=== PATIENT | female | born 1980 | race Caucasian/White ===

== ENCOUNTER 2017-12-02 07:00 | Observation (INO) | payer OTHER ==
[~2017-12-02] VITALS: Ht 165.1 cm; Wt 79.9 kg
[~2017-12-02 07:00] MED LIST: ALBUTEROL SULF8.5 GM IH; ENDOCET 5-3251 EACH PO; IRON325 MG PO; LABETALOL HCL200 MG PO; MOTRIN800 MG PO; Motrin PO; NATALCARE RX1 TABLET PO; NIFEDIPINE10 MG PO; PERCOCET 5/31 TABLET PO; Percocet 5/325,Endoc PO; ZITHROMAX250 MG PO
[2017-12-02 07:32] LABS: BASOPHIL (%) 0.6 % (0-1); EOSINOPHIL (%) 0.9 % (0-5); HEMOGLOBIN 12.3 G/DL (11.9-15.5); IMMATURE GRANULOCYTE (%) 0.3 % (0.0-0.7); LYMPHOCYTE (%) 28.6 % (15-42); MCHC 33.2 G/DL (30.0-36.0); MCV 87.3 FL (83-99); MONOCYTE (%) 11.7 % (3-12); MONOCYTE COUNT 0.4 K/uL (0-0.8); NEUTROPHIL (%) 57.9 % (45-76); NEUTROPHIL COUNT 1.9 K/uL (1.8-6.4); PLATELET COUNT 150 K/uL (156-360); RBC DIS.WIDTH-CV 12.6 % (11.8-14.6); RBC DIS.WIDTH-SD 39.9 % (39-53); RED BLOOD COUNT 4.24 M/uL (3.80-5.20); WHITE BLOOD COUNT 3.3 K/uL (4.1-10.2)
[2017-12-02 07:47] LABS: CHLORIDE 111 mEq/L (99-109); POTASSIUM 4.1 mEq/L (3.7-5.4); SODIUM 138 mEq/L (136-147)
[2017-12-02 07:48] LABS: GLUCOSE 91 mg/dL (70-99)
[2017-12-02 07:52] LABS: CREATININE 0.7 mg/dL (0.6-1.3); GFR ESTIMATE (CALCULATED) > 59 mL/min/
[2017-12-02 08:03] LABS: UREA NITROGEN (BUN) 16 mg/dL (9-23)
[2017-12-02 10:15] LABS: HDL CHOLESTEROL 51 MG/DL (Desirable>=50); LDL CHOLESTEROL 69 mg/dL (Desirable<100); NON-HDL CHOLESTEROL 87 mg/dL (Desirable<160); TOTAL CHOLESTEROL 138 mg/dL (Desirable<200); TRIGLYCERIDES 89 MG/DL (Normal: <150)
[2017-12-02 11:15] VITALS: BP 124/78
[2017-12-02 11:35] LABS: HEMOGLOBIN A1c (GLYCOHEMOGLOB) 5.4 % (Below 5.7)
[2017-12-02 15:25] VITALS: BP 120/78
[2017-12-02] MEDS ORDERED: PRAVASTATIN SOD40 MG PO (16:09)
[2017-12-02] MEDS ORDERED: ASPIR-LOW81 MG PO (16:09)
== END 2017-12-02 17:48 | disposition home or self-care (01) ==
LOC: EME 07:00 → EDOF 09:24 → 4SOUTH 09:24 → EDOF 09:24 → ENRESERV 09:27 → 4SOUTH 11:11
PROVIDERS: Emergency Medicine; Nurse Practitioner Adult Health
DX: G45.9 Transient cerebral ischemic attack, unspecified (principal); M32.9 Systemic lupus erythematosus, unspecified; I73.00 Raynaud's syndrome without gangrene; Z91.018 Allergy to other foods
CPT/HCPCS: 70450; 70551; 71045; 80048; 80061; 83036; 85025; 85610; 92523 GN; 93005; 93880; 99281; 99284; G0378